=== PATIENT | male | born 1980 | race Caucasian/White ===

== ENCOUNTER 2020-09-10 09:20 | Emergency (ER) | payer BC ==
[~2020-09-10] VITALS: Ht 172.7 cm; Wt 79.4 kg
[2020-09-10 09:27] VITALS: Ht 172.7 cm; Wt 79.4 kg
[2020-09-10 10:44] VITALS: BP 136/91
== END 2020-09-10 10:44 | disposition home or self-care (01) ==
LOC: ED 09:20
DX: S01.01XA Laceration without foreign body of scalp, initial encounter (principal); S01.111A Laceration without foreign body of right eyelid and periocular area, initial encounter; Y08.89XA Assault by other specified means, initial encounter; Y93.89 Activity, other specified; Y92.89 Other specified places as the place of occurrence of the external cause; Y99.8 Other external cause status
CPT/HCPCS: J2001

== ENCOUNTER 2020-09-12 08:52 | Emergency (ER) | payer BC ==
[~2020-09-12] VITALS: Ht 172.7 cm; Wt 79.4 kg
[2020-09-12 09:38] VITALS: BP 130/89
== END 2020-09-12 09:39 | disposition home or self-care (01) ==
LOC: ED 08:52
DX: S01.81XD Laceration without foreign body of other part of head, subsequent encounter (principal); X58.XXXD Exposure to other specified factors, subsequent encounter

== ENCOUNTER 2020-09-18 09:55 | Emergency (ER) | payer BC ==
[~2020-09-18] VITALS: Ht 172.7 cm; Wt 77.6 kg
[2020-09-18 10:15] VITALS: BP 123/84; Ht 172.7 cm; Wt 77.6 kg
== END 2020-09-18 10:35 | disposition home or self-care (01) ==
LOC: ED 09:55
DX: S01.111D Laceration without foreign body of right eyelid and periocular area, subsequent encounter (principal); H11.31 Conjunctival hemorrhage, right eye; X58.XXXD Exposure to other specified factors, subsequent encounter